=== PATIENT | female | born 1960 | race Caucasian/White ===

== ENCOUNTER 2018-01-19 01:01 | Emergency (ER) | payer MEDICAID ==
[~2018-01-19] VITALS: Ht 152.4 cm; Wt 93.4 kg
[2018-01-19 01:04] VITALS: Ht 152.4 cm; Wt 93.4 kg
[2018-01-19 04:00] VITALS: BP 120/80
== END 2018-01-19 04:00 | disposition home or self-care (01) ==
LOC: ED 01:01
DX: G47.00 Insomnia, unspecified (principal); R07.89 Other chest pain; F41.9 Anxiety disorder, unspecified; I10 Essential (primary) hypertension; I49.9 Cardiac arrhythmia, unspecified

== ENCOUNTER 2019-02-24 00:11 | Emergency (ER) | payer SELFPAY ==
[~2019-02-24] VITALS: Ht 157.5 cm; Wt 91.3 kg
[2019-02-24 00:39] VITALS: Ht 157.5 cm; Wt 91.3 kg
[2019-02-24 04:43] VITALS: BP 146/89
== END 2019-02-24 04:43 | disposition home or self-care (01) ==
LOC: ED 00:11
DX: K21.9 Gastro-esophageal reflux disease without esophagitis (principal); I10 Essential (primary) hypertension

== ENCOUNTER 2019-03-03 13:32 | Emergency (ER) | payer SELFPAY ==
[~2019-03-03] VITALS: Ht 170.2 cm; Wt 90.7 kg
[2019-03-03 13:37] VITALS: Ht 170.2 cm; Wt 90.7 kg
[2019-03-03 15:38] LABS: PLATELET COUNT 261 x10^3mcL (130-400); RED CELL DISTRIBUTION WIDTH 13.4 % (11.5-14.5)
[2019-03-03 16:06] LABS: CALCIUM 8.9 mg/dL (8.5-10.1); CARBON DIOXIDE 23.9 mmol/L (21-32); CHLORIDE SERUM 106 mmol/L (98-107); CREATININE SERUM 0.9 mg/dL (0.6-1.0); GFR1 > 60 mL/min; GLUCOSE SERUM 103 mg/dL (74-106); POTASSIUM SERUM 3.8 mmol/L (3.5-5.1); SODIUM SERUM 143 mmol/L (136-145)
[2019-03-03 16:10] LABS: ALBUMIN 3.6 g/dL (3.4-5.0); ALKALINE PHOSPHATASE 120 U/L (46-116); ALT/SGPT 46 U/L (14-59); AST/SGOT 25 U/L (15-37); BILIRUBIN TOTAL 0.25 mg/dL (0.20-1.00)
[2019-03-03 16:12] LABS: TOTAL PROTEIN, SERUM 8.5 g/dL (6.4-8.2)
[2019-03-03 17:58] VITALS: BP 134/70
[2019-03-03 18:04] LABS: BAND NEUTROPHIL 0 % (0-10); BASOPHIL 0 % (0-2); MONOCYTE 1 % (0-7); SEGMENTED NEUTROPHILS 75 % (37-75)
[2019-03-03 18:05] LABS: rbc morphology (normal/abnorm) NORMAL (NORMAL)
[2019-03-03 18:06] LABS: PLATELET MORPHOLOGY PLATELETS NORMAL
== END 2019-03-03 17:58 | disposition home or self-care (01) ==
LOC: ED 13:32
PROVIDERS: Emergency Medicine
DX: R53.1 Weakness (principal)
CPT/HCPCS: J7030